=== PATIENT | female | born 1965 | race Hispanic/Latino ===

== ENCOUNTER → 2022-01-14 | Day surgery (SDC) | payer BC ==
[~2022-01-14] MED LIST: FENTANYL CITRATE/PF 100MCG/2 ML INJ ONE; HYDROMORPHONE 1MG/1ML INJ ONE; SODIUM CHLORIDE 0.9% 50ML 50 ML ONE
[2022-01-14 10:04] LABS: BASOPHILS # (AUTO) 0.1 (0.0-0.1); EOSINOPHILS # (AUTO) 0.2 (0.0-0.4); EOSINOPHILS % 3.3 % (0.0-6.0); HEMATOCRIT 42.4 % (34.2-44.1); HEMOGLOBIN 14.1 g/dL (12.0-16.0); LYMPHOCYTES # (AUTO) 2.1 (1.0-3.2); LYMPHOCYTES % 28.5 % (18.0-39.1); MEAN CORPUSCULAR HEMOGLOBIN 30.4 pg (28-32); MEAN CORPUSCULAR HGB CONC 33.3 g/dL (31-35); MEAN CORPUSCULAR VOLUME 91.4 fL (81-99); MONOCYTES # (AUTO) 0.6 (0.2-0.8); MONOCYTES % 8.6 % (4.4-11.3); NEUTROPHILS # (AUTO) 4.2 (2.1-6.9); NEUTROPHILS % 58.2 % (38.7-80.0); PLATELET COUNT 337 x10e3/uL (140-360); RED BLOOD COUNT 4.64 x10e6/uL (3.6-5.1)
[2022-01-14 10:19] LABS: ANION GAP 13.7 mmol/L (8-16); CALCIUM 9.8 mg/dL (8.4-10.2); CREATININE, SERUM 0.9 mg/dL (0.57-1.11); POTASSIUM 3.7 mmol/L (3.5-5.1)
[2022-01-14 10:21] LABS: INR 0.93; PROTHROMBIN TIME 13.3 seconds (11.9-14.5)
[2022-01-14 10:22] LABS: PARTIAL THROMBOPLASTIN TIME 32.9 seconds (23.8-35.5)
[2022-01-14 12:12] VITALS: BP 156/79
== END | disposition home or self-care (01) ==
LOC: OR 09:21
PROVIDERS: ATTEND Specialist
DX: S83.231A Complex tear of medial meniscus, current injury, right knee, initial encounter (principal); M17.0 Bilateral primary osteoarthritis of knee; M94.261 Chondromalacia, right knee; N18.9 Chronic kidney disease, unspecified; X58.XXXA Exposure to other specified factors, initial encounter; Z01.810 Encounter for preprocedural cardiovascular examination; Z01.812 Encounter for preprocedural laboratory examination; Z20.822 Contact with and (suspected) exposure to COVID-19
CPT/HCPCS: 29881; 36415; 80048; 85025; 85610; 85730; 93005; J0690; J1170; J3010; U0002